=== PATIENT | female | born 1955 | race Caucasian/White ===

== ENCOUNTER 2022-07-25 10:10 | Outpatient (CLI) | payer MEDICARE, OTHER, SELFPAY ==
--- NOTE | ~2022-07-25 | MR_ITS ---
MRI of the left ankle Clinical history: Pain Technique: Coronal proton-density and proton-density fat-sat images, axial proton-density and proton- density fat-sat images, and sagittal proton-density and proton-density fat-sat images were acquired. Findings: Syndesmotic ligaments are intact. Anterior talofibular ligament is intact. Posterior talofi bular ligament is intact, though with increased signal. Calcaneofibular ligament is probably intact, with increased signal. Deltoid ligament is intact. Medial flexor tendons, peroneal tendons, anterior extensor tendons, and Achilles tendon are intact. There is a 1.4 cm osteochondral lesion at the medial corner of the talar dome, with subchondral cysti c change, overlying chondromalacia, and extensive marrow edema throughout the medial aspect of the ta camelia. Remaining bone marrow signals about the ankle are unremarkable. No joint effusion. Plantar fascia is intact. Normal signal preserved in the sinus Tarsi. No soft tissue mass or fluid co llection identified. Impression: 1.4 cm osteochondral lesion of the medial corner of the talar dome with extensive surrounding marrow edema. Increased signal of the posterior talofibular and calcaneofibular ligaments, which could reflect spra in versus chronic change. Reviewed, dictated and finalized at location . Impression: 1.4 cm osteochondral lesion of the medial corner of the talar dome with extensi ve surrounding marrow edema. Increased signal of the posterior talofibular and calcaneofibular ligaments, wh ich could reflect sprain versus chronic change.
== END 2022-07-25 10:11 | disposition home or self-care (01) ==
PROVIDERS: PCP Physician Assistant; Visit Provider Orthopaedic Surgery
DX: M25.572 Pain in left ankle and joints of left foot (principal); G89.29 Other chronic pain
CPT/HCPCS: 73721